=== PATIENT | female | born 1995 | race Caucasian/White ===

== ENCOUNTER 2016-07-05 06:57 | Day surgery (SDC) | payer OTHER ==
[2016-07-05] VITALS (7 sets, daily range): BP systolic 99–121; BP diastolic 46–63; PULSE 63–82; RESP 16–22; O2SAT 93–100
[~2016-07-05] VITALS: Ht 157.5 cm; Wt 62.5 kg
--- NOTE | 2016-07-05 06:49 | PCM.HPANE ---
Patient Data Surgeon Admitting Provider: Attending Provider:Nelda Giang MD Primary Care Physician:Ernesto Chong DO Other Provider:[facility] Reason for Visit Chronic Pelvic Pain Ht/WT & BMI Height (Feet): 5 Height (Inches): 2 Weight (Kilograms): 61.05 Body Mass Index 24.00 Allergies Coded Allergies: Penicillins (Verified Allergy, Intermediate, Hives, 05/30/16) as a child azithromycin (Verified Allergy, Intermediate, Hives, 05/30/16) Uncoded Allergies: TDAP (Allergy, Unknown, SEIZURE CHILD, 07/05/16) STATES WITH WHOOPING COUGH VACCINE. Past Anesthesia History Anesthesia History: Denies:: Abnormal Airway, Anesthesia Reactions, Difficult Intubation, Fam Anesthesia Reaction Diabetes History Hx Diabetes?: No MRSA MRSA: No Medications Hypertension Medication: No Home Meds Incl Beta May: No Reported Medications Magnesium 30 Mg TabletUnknown Dose PO DAILY 07/05/16 Melatonin 10 Mg Cawjch02 Mg PO HS PRN Insomnia 07/05/16 Trazodone 50 Mg Pgnhat09 Mg PO HS Ref 0 07/03/16 Sertraline HCl (Sertraline)20 Mg/1 Ml Oral.conc25 Mg PO DAILY #1 BOTTLE Ref 0 07/03/16 [mirena] 20mcg/24hr No Conflict Check20 Mcg INTRAUTERI DAILY 07/03/16 Hydrocodone-Acetaminophen 5-325 mg 1 Each Tablet1 Tablet PO Q6H PRN For Pain Ref 0 07/03/16 Discontinued Reported Medications Norgestimate-Ethinyl Estradiol (Sprintec)1 Each Tablet1 Each PO DAILY 07/03/16 Doxycycline Hyclate 100 Mg [id number] Mg PO BID #20 12/30/15 Sertraline HCl (Sertraline)25 Mg Tnejhd03 Mg PO DAILY #30 12/30/15 Trazodone 50 Mg Dvderg25 Mg PO HS #30 12/30/15 Discontinued Scripts Ondansetron (Zofran)4 Mg Tablet4 Mg PO Q4H PRN For Nausea #30 TABLET Prov:WHIT GARNER DO 05/30/16 Hydrocodone-Acetaminophen 5-325 mg 1 Each Tablet1 Tablet PO Q4H PRN For Pain # 14 TABLET Ref 0 Prov:WHIT GARNER DO 05/30/16 History History of ENT Problems?: No HEENT History: Denies:: Abnormal Airway Cataracts Difficult Intubation Dysphagia Glaucoma Hearing Problem Sinus Problem TMJ Hx of Heart Problems?: No Cardiovascular History: Denies:: AICD Abdominal Aortic Aneurism Atrial Fibrillation Congestive Heart Failure Coronary Artery Disease Edema Heart Murmur Hypertension Irregular Heartbeat Pacemaker Rheumatic Fever Hx of Respiratory Problem?: No Respiratory History: Denies:: Asthma COPD Emphysema Oxygen Administration Pneumonia (remote hx of- possibly) Tuberculosis Use of C-PAP Machine Use of Inhalers / NEBS Hx Neurologic Problems?: Yes Neurological History: Positive for:: Dizziness (hx of vasovagal fainting ) Denies:: CVA Headaches Multiple Sclerosis Parkinson's Disease Seizures Hx of GI Problems?: No Gastrointestinal History: Denies:: Cirrhosis Gall Bladder Disease Gastroesphageal Reflux Gastrointestinal Bleeding Heartburn Hepatitis Hiatal Hernia Liver Disease Hx of Problems?: Yes Genitourinary History: Positive for:: Urinary Tract Infection (frequent UTIs, not currently) Denies:: Kidney Stones Female Hx: Denies:: Currently (IUD) Problems with Breasts? Skin History: Denies:: History Skin Disorders? Pressure Ulcers Hx Musculoskeletal Problems?: No Musculoskeletal History: Positive for:: Back Injury (chiropractor regularly) Denies:: Degenerative Joint Fibromyalgia Joint Replacement Musculoskeletal Trauma Myasthenia Gravis Osteoarthritis Systemic Lupus Hx of Psycho/Social Problems?: Yes Psycho Social History: Positive for:: Anxiety (PTSD) Bipolar Disorder Hx Depression Hx Surgeries?: Yes (Hymenectomy) Hx Any Other Health Problems?: Yes Other History: Denies:: Cancer Thyroid Disease History Blood Transfusions: Positive for:: Accept Blood Products? Denies:: Blood Transfusions Hx Diabetes: No Hx Alcohol Use: YesAlcoholic Drinks Per Day: holidaysHx Substance Use: No Smoking Status: Never Smoker Stop/Bang S-Snoring: Do You Snore Loudly: Yes T-Tired: feel tired, fatigued: Yes O-Obsered: Observed not breath: No P-Blood Pressure: treated: No B- Body Mass Index > 35 kg/m2: No A- Age over 50: No N- Neck Large Circumference: No G- Gender Male: No IRENE Total Score: 2 Risk Assessment Category Category 1A: Patient has history of documented sleep apnea, and HAS NOT received any narcotic, sedative or anesthesia administration during this stay. Category 1B: Patient has history of documented sleep apnea, and HAS received any narcotic , sedative or anesthesia administration during this stay Category 2: Patient has SUSPECTED Obstructive Sleep Apnea, and HAS received any narcotic , sedative or anesthesia administration during this stay. Category 3: Patient has SUSPECTED Obstructive Sleep Apnea and HAS NOT received narcotic, sedative or anesthesia administration during this stay. Category 4: Outpatient in Procedural Areas with known sleep apnea or who screen positive for High Risk via the STOP/BANG questionnaire. Exam Exam General Appearance: Alert, Oriented X3, Cooperative HEENT/AIRWAY: MP 2, Neck Movement (wnl), Mouth Opening (wnL, prominent, anterior front upper teeth) Lungs: Clear to Auscultation Heart: Exam Unremarkable Plan Impression Patient chart reviewed, patient interviewed and anesthestic plan with risks, benefits, and alternatives discussed, and informed consent obtained. ASA Physical Status: ASA2 Mod Systemic Disease Anesthetic Plan: GA Bene/Risks/Altern/Consents: Yes HP Complete Prior to Induction: Yes Nomi Rivera MD Jul 05, 2016 06:49
[~2016-07-05 06:57] MED LIST: HYDR-4003 PO; Lactated Ringer's 1,000 ML IV SCH; NORG1TAB14 PO; SERT20OR6 PO; TRAZ-115 PO; mirena INTRAUTERI
[2016-07-05] MEDS ORDERED: fentaNYL-PF 50 mCg/mL 2 mL Inj ONE (06:58)
[2016-07-05] MEDS ORDERED: MELA10TA2 PO (07:15)
[2016-07-05] MEDS ORDERED: MAGN30TA3 PO (07:15)
[2016-07-05] MEDS ORDERED: Lactated Ringer's 1,000 ML IV ONE (08:13)
[2016-07-05 08:14] LABS: BASOPHILS % (AUTO) 0.2 % (0-3); EOSINOPHILS % (AUTO) 1.1 % (0-5); MONOCYTES % (AUTO) 5.9 % (4-12); Mean Corpuscular Hemoglobin 30.6 pg (27.0-35.0); NEUTROPHILS % (AUTO) 60.7 % (40-74); Platelet Count 186 bil/L (150-400)
[2016-07-05] MEDS ORDERED: LORazepam 1 mg Tablet PO PRN (08:25)
[2016-07-05] MEDS ORDERED: Acetaminophen IV 1,000 MG in IV Premix 1 EACH IV ONE (08:25)
[2016-07-05] MEDS ORDERED: Lactated Ringer's 500 ML IV PRN (11:10)
[2016-07-05] MEDS ORDERED: Phenylephrine 10,000 mCg/mL Inj IVPUSH PRN (11:10)
[2016-07-05] MEDS ORDERED: fentaNYL-PF 50 mCg/mL 2 mL Inj IVPUSH PRN (11:10)
[2016-07-05] MEDS ORDERED: Labetalol 5 mg/mL 4 mL Inj IV PRN (11:10)
[2016-07-05] MEDS ORDERED: EPHEDrine Sulfate 50 mg/mL Inj IM PRN (11:10)
[2016-07-05] MEDS ORDERED: Dexamethasone 4 mg/mL Inj IVPUSH PRN (11:10)
[2016-07-05] MEDS ORDERED: EPHEDrine Sulfate 50 mg/mL Inj IVPUSH PRN (11:10)
[2016-07-05] MEDS ORDERED: Atropine 0.4 mg/mL Inj IVPUSH PRN (11:10)
[2016-07-05] MEDS ORDERED: HYDROmorphone 1 mg/mL Inj IVPUSH PRN (11:10)
[2016-07-05] MEDS ORDERED: hydrALAZINE 20 mg/mL Inj IVPUSH PRN (11:10)
[2016-07-05] MEDS ORDERED: Lactated Ringer's 1,000 ML IV SCH (11:10)
[2016-07-05] MEDS ORDERED: Ondansetron 2 mg/mL 2 mL Inj IVPUSH PRN ×2 (11:10→12:45)
[2016-07-05] MEDS ORDERED: Bupivacaine 0.5%/EPI 50 mL Inj INFILTRATE ONE (11:22)
[2016-07-05] MEDS ORDERED: oxyCODONE-Acetamin 5-325 mg Tablet PO PRN (12:45)
[2016-07-05] MEDS ORDERED: MetoCLOpramide 5 mg/mL 2 mL Inj IVPUSH PRN (12:45)
--- NOTE | 2016-07-05 12:48 | PCM.DIMED ---
Discharge Instructions Date of Service Jul 05, 2016 Dates of Hospitalization Discharge Diagnosis Discharge Diagnosis chronic pelvic pain Diet No restrictions Call your provider Fever or Chills, Shortness of breath, Bleeding Patient Instructions Please call office or go to ER if heavy vaginal bleeding, severe abdominal pain , foul smelling discharge, fever more than 100.4 Follow-up plan follow up with Dr Giang 2 weeks after procedure Follow-up Provider: Nelda Giang MD, Ying MD Jul 05, 2016 12:48
--- NOTE | 2016-07-05 13:23 | PCM.ANEP1 ---
Post Anesthesia Phase 1 PACU Phase 1 Assessment Vital Signs Vital Signs Date Time Temp Pulse Resp B/P Pulse Ox O2 Delivery O2 Flow Rate FiO2 07/05/16 13:10 63 17 99/63 100 Room Air 07/05/16 13:00 68 18 101/50 97 Room Air 07/05/16 12:53 74 19 108/57 98 Nasal Cannula 2 07/05/16 12:45 68 20 102/48 98 Nasal Cannula 2 07/05/16 12:40 36.3 81 22 104/46 93 Room Air 07/05/16 07:42 36.4 79 16 121/53 100 Room Air Anesthetic Administered: GA Level of Alertness: Awake, talking ROSS's with Equal Strength: Yes Pain: No Nausea or Vomiting: No Oxygen Delivery: Room Air Lungs: Normal Air Movement Nomi Rivera MD Jul 05, 2016 13:23
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
--- NOTE | 2016-07-05 13:33 | DIS ---
[address] [address] DISCHARGE SUMMARY PATIENT: LUIS A CLAYTON : 1995 MR#: [id number] ADMIT: 07/05/2016 JOB ID: [id number] DIS: HOSPITAL COURSE: This is a 20-year-old female, never been . Coming in today for a diagnostic laparoscopy for chronic pelvic pain. The procedure was not complicated. The patient tolerated well. Plan to discharge her home when her pain is well controlled and she can void and ambulate. The patient is instructed that she will come back to see me in two weeks in the office. She needs to call the office or go to the ED for evaluation if there is heavy vaginal bleeding, severe abdominal pain, fever 104, or shortness of breath.
--- NOTE | 2016-07-06 11:44 | PCM.ANEP2 ---
Post Anesthesia Evaluation ASA/CMS Post Anesthesia VS in Patient's Normal Range?: Yes Resp Stable; Airway Patent?: Yes CV Function & Hydration Stable: Yes Mental Status Recovered?: Yes Pain control Satisfactory?: Yes N/V Control Satisfactory?: Yes Nomi Rivera MD Jul 06, 2016 11:44
--- NOTE | 2016-07-09 11:37 | PATH ---
SURGICAL PATHOLOGY Attending Physician:Nelda Giang MD CASE STATUS: Signed Out PATIENT NAME: LUIS A CLAYTON PID: [id number] : 1995 DATE COLLECTED:07/05/2016 00:00 SPECIMEN: Perineum, biopsy CLINICAL HISTORY: CHRONIC PELVIC PAIN 1). PERITONEAL BIOPSY FINAL DIAGNOSIS: 1.PERITONEAL BIOPSY: FOCAL ENDOMETRIOSIS. NEGATIVE FOR MALIGNANCY AND SIGNIFICANT ATYPIA. ICD10 CODE N80.9 GROSS DESCRIPTION: The specimen is received in one formalin filled container labeled with the patient's name, sublabeled "peritoneal" and consists of a 0.4 x 0.3 x 0.3 CM portion of tissue. The specimen is entirely submitted in one cassette. 07/06/2016 DAC MICRO DESCRIPTION: See diagnosis. ICD-9 CODES: CPT CODES: 1: 30686 Electronically Signed Out Forrest Darling MD [facility] [address], [place] [address] Technical component performed at [facility], [facility] [address], [place], [address]
== END 2016-07-05 23:59 | disposition home or self-care (01) ==
LOC: SAS 06:57
PROVIDERS: ATTEND Obstetrics & Gynecology
DX: N80.9 Endometriosis, unspecified (principal); R10.2 Pelvic and perineal pain; F43.10 Post-traumatic stress disorder, unspecified; F31.9 Bipolar disorder, unspecified; F41.9 Anxiety disorder, unspecified; Z62.810 Personal history of physical and sexual abuse in childhood; Z87.440 Personal history of urinary (tract) infections; Z30.432 Encounter for removal of intrauterine contraceptive device
CPT/HCPCS: 36415; 49321; 58301; 85025; J0131; J2250; J2405; J2765; J3010; J7120

== ENCOUNTER 2016-08-05 17:03 | Emergency (ER) | payer OTHER ==
[~2016-08-05] VITALS: Ht 157.5 cm; Wt 59.1 kg
[~2016-08-05 17:03] MED LIST changes: -Lactated Ringer's 1,000 ML IV SCH; +MAGN30TA3 PO; +MELA10TA2 PO; -NORG1TAB14 PO
[2016-08-05 17:08] VITALS: BP 145/98; PULSE 96; RESP 16; O2SAT 100
[2016-08-05 18:03] LABS: BASOPHILS % (AUTO) 0.1 % (0-3); EOSINOPHILS % (AUTO) 0.4 % (0-5); Mean Corpuscular Hemoglobin 29.8 pg (27.0-35.0); Mean Corpuscular Volume 86.5 fL (81-100); NEUTROPHILS % (AUTO) 66.4 % (40-74); Platelet Count 233 bil/L (150-400)
[2016-08-05 18:27] LABS: Magnesium 2.1 mg/dL (1.6-2.6)
[2016-08-05 19:26] LABS: APPEARANCE,URINE CLEAR (CLEAR,HAZY); COLOR,URINE YELLOW (YELLOW); OCCULT BLOOD,URINE LARGE (NEGATIVE); UROBILINOGEN,URINE NORMAL (NORMAL)
--- NOTE | 2016-08-05 19:27 | ED.REPORT ---
HPI-Abd Pain F Under 40 Date of Service Aug 05, 2016 ED Provider: Dr. 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 She also had 1 episode of black stool 6 hrs [employer]. She reports constant, severe abdominal and bladder pain. Pt denies dysuria and hematuria but has to urinate over 30-40 times a day. She has an appointment on Friday to check for an ulcer. She was last seen at the ED 05/30/16 for abdominal pain. She has had multiple recent urine cultures done by her PCP and has tested negative for any STDs, bacteria, and . Dr. Keys is her urologist. She is currently taking Oxybutynin, Trazodone, Ibuprofen,and Naproxen. Nursing Notes Stated Complaint: NAUSEA/VOMITING, SENT BY MD Chief Complaint: Female Abdominal Pain Nursing Notes Reviewed: Yes Allergies: Coded Allergies: Penicillins (Verified Allergy, Intermediate, Hives, 08/05/16) as a child azithromycin (Verified Allergy, Intermediate, Hives, 08/05/16) Uncoded Allergies: TDAP (Allergy, Unknown, SEIZURE CHILD, 07/05/16) STATES WITH WHOOPING COUGH VACCINE. Scheduled ([mirena]) 20mcg/24hr 20 MCG INTRAUTERI DAILY Magnesium (Magnesium) 30 Mg Tablet Unknown Dose PO DAILY Sertraline HCl (Sertraline) 20 Mg/1 Ml Oral.conc 25 MG PO DAILY Trazodone (Trazodone) 50 Mg Tablet 50 MG PO HS Scheduled PRN Hydrocodone-Acetaminophen 5-325 mg (Hydrocodone-Acetaminophen 5-325 mg) 1 Each Tablet 1 TABLET PO Q6H PRN PRN For Pain Melatonin (Melatonin) 10 Mg Tablet 10 MG PO HS PRN PRN Insomnia General Time Seen by MD: 19:24 Chief Complaint Abdominal pain Hx Obtained From: Patient Arrived By: Walk-in Sudden in Onset?: Yes Symptom Duration: Since onset Location: : Abdomen lower: Abdomen upper: Diffuse: Suprapubic Quality: Painful Severity: Current: Moderate Recent Healthcare: Recent doctor visit Similar Sx Previous: Yes Past Medical History Past Medical History ovarian cysts chronic pelvic pain with no response to antibiotics frequent UTIs PTSD Past Surgical History 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 Physical Exam Initial Vital Signs Vital Signs (First) Date Time Temp Pulse Resp B/P Pulse Ox O2 Delivery O2 Flow Rate FiO2 08/05/16 17:08 36.6 96 16 145/98 100 Room Air Initial VS: Reviewed Head / Eyes: Atraumatic, Normocephalic, PERRL ENT: Mucous membranes moist, Conjunctiva normal, No scleral icterus Neck: Supple, Non-tender, Full range of motion Extremities: Vascular intact, Neuro intact, No swelling, No tenderness Skin: Warm, Dry, No cyanosis Neurologic: Alert, Oriented, Nonfocal Psychiatric: Mood/affect normal, Behavior normal, Normal thought content General/Constitutional: Awake, Alert, Cooperative, Not toxic appearing Respiratory / Chest: Atraumatic, Breath sounds NL, Breath sounds = bilat, No respiratory distress, No rales, No rhonchi, No wheezing, No retractions, No stridor, No chest tenderness Cardiovascular: Heart rate NL, Regular rhythm, No gallop, No murmurs, No rubs, Peripheral circulation NL, Pulses = bilaterally faint systolic ejection murmur Abdomen: Soft, No guarding, No rebound, BS normoactive, No distention Tenderness/Guarding/Rebound: Positive: Tender suprapubic Back: Atraumatic, Inspection NL, Full range of motion, Painless range of motion , Non-tender, No midline vertebral tend, No CVA tenderness Interpretation & Diagnostics Lab Results Interpretation Result Diagram: 08/05/16212408/05/16 175 Test 08/05/16 17:51 08/05/16 18:57 08/05/16 21:25 White Blood Count 6.7th/mm3 (3.8-10.1) Red Blood Count 4.43mil/mm3 (3.90-5.20) Mean Corpuscular Volume 86.5fL (81-100) Mean Corpuscular Hemoglobin 29.8pg (27.0-35.0) Mean Corpuscular Hemoglobin Concent 34.5% (32.0-37.0) Red Cell Distribution Width 12.1% (12.3-15.4) Platelet Count 233bil/L (150-400) Neutrophils (%) (Auto) 66.4% (40-74) Lymphocytes (%) (Auto) 29.0% (14-46) Monocytes (%) (Auto) 4.0% (4-12) Eosinophils (%) (Auto) 0.4% (0-5) Basophils (%) (Auto) 0.1% (0-3) Sodium Level 134mEq/L (134-144) Potassium Level 3.9mEq/L (3.5-5.2) Chloride Level 97mEq/L (97-108) Carbon Dioxide Level 22mmol/L (18-29) Blood Urea Nitrogen 16mg/dL (6-20) Creatinine 0.72mg/dL (0.57-1.00) Estimat Glomerular Filtration Rate 148mL/min (>59) Glucose Level 92mg/dL (60-99) Calcium Level 9.4mg/dL (8.5-10.1) Magnesium Level 2.1mg/dL (1.6-2.6) Total Bilirubin 0.2mg/dL (0.0-1.2) Aspartate Amino Transf (AST/SGOT) 19U/L (0-50) Alanine Aminotransferase (ALT/SGPT) 14U/L (0-32) Alkaline Phosphatase 41U/L (25-150) Total Protein 7.2g/dL (6.4-8.4) Albumin 5.0g/dL (3.4-5.0) Lipase 18U/L (13-60) Hold Arriaza Top Tube Received (Received) Urine Color Yellow (YELLOW) Urine Appearance Clear (CLEAR,HAZY) Urine pH 6.0 (5.0-8.0) Urine Specific [place] 1.010 (1.003-1.035) Urine Protein Negativemg/dL (NEG,TRACE) Urine Glucose (UA) Negativemg/dL (NEGATIVE) Urine Ketones 15mg/dL (NEGATIVE) Urine Occult Blood Large (NEGATIVE) Urine Nitrite Negative (NEGATIVE) Urine Bilirubin Negative (NEGATIVE) Urine Urobilinogen Normalmg/dL (NORMAL) Urine Leukocyte Esterase Negative (NEGATIVE) Urine RBC 11-50/hpf (0-2) Urine WBC 0-5/hpf (0-5) Urine Epithelial Cells Few/hpf (NONE-MOD) Urine Crystals None seen (NONE SEEN) Urine Bacteria Few/hpf (NONE-FEW) Urine Hyaline Casts None/lpf (NONE) Urine Granular Casts None seen (NONE SEEN) Urine Waxy Casts None seen (NONE SEEN) Urine Red Blood Cell Casts None seen (NONE SEEN) Urine White Blood Cell Casts None seen (NONE SEEN) Urine Mucus None seen (None Seen) Urine Trichomonas None seen (NONE SEEN) Urine Yeast None (NONE SEEN) Urinalysis Comment None Urine Culture Reflexed Not indicated Hemoglobin 12.8g/dL (12.0-15.6) Hematocrit 36.6% (35.0-46.0) Re-Eval/Medical Decision Med Decision/Clinical Course Healthy 20-year-old female is referred in for evaluation of black vomitus and black stools. Evidently she suffers from chronic interstitial cystitis. She takes a large number of anti-inflammatories for the pain. She is scheduled to have cystoscopy this week. Today she threw up she said it looked like it had some black fluid. There is no coffee-ground emesis or blood. She also had a bowel movement very dark. She does not know she passed any blood. Either way she called her doctor referred her in. On examination she had a soft nontender abdomen and she looked great. She declined rectal examination. Serial H&H's were very reassuring. Her BUN/creatinine were normal. She looks great. I observed her for many hours. After 5 hours of observation she had no bloody stools and she had no bloody emesis and she is ready to go home. She did receive Carafate and Protonix. I will put her on Protonix once daily. I am taken her off the Naprosyn. She is provided a short course of [place] for pain. She is to keep her follow-up for cystoscopy this week. She is return if she has any problems or worsening symptoms. Counseled Regarding: Diagnosis, Lab results, Need for follow-up, When/why to return to ED Discharge & Departure Primary Impression: Abdominal pain in female Disposition: Home Discharge Condition All VS Reviewed: Yes Condition: Stable Patient Instructions: Acute Abdominal Pain (ED), Gastritis (ED) Additional Instructions: The laboratory work is reassuring. No signs of active hemorrhage. If you pass any bloody or black stools then I would like you to be tested again for bleeding. Stop taking the Naprosyn. Take Protonix daily for 2 weeks. Take 1- 2 [place] every 6 hours as needed for severe pain. Do not drive or drink alcohol or consume acetaminophen while taking the [place]. Keep your follow-up cystoscopy appointment. Set up a follow-up with her primary care physician as well. You may need endoscopy if the symptoms persist. Referrals: Annabella Escobar (PCP) Breanaibe Attestation Portion of this note were transcribed by Ayla Chapman. I, Dr. Marin, personally performed the history, physical exam, and medical decision-making: I reviewed and confirmed the accuracy for the information in the transcribed note. Signed by: heather Chirinos, 08/05/16 2200 copies to: Annabella Escobar Todd P DO Aug 05, 2016 19:27 Ayla Chapman Aug 05, 2016 20:01
[2016-08-05] MEDS ORDERED: HYDROcodone-APAP 5-325 mg Tablet PO ONE (20:05)
[2016-08-05] MEDS ORDERED: Pantoprazole 4 mg/mL 10 mL Inj IVPUSH ONE (20:05)
[2016-08-05] MEDS ORDERED: Pantoprazole 40 mg ER24 Tablet PO ONE (20:50)
[2016-08-05] MEDS: Sucralfate 100 mg/mL 10 mL Suspension PO ONE ×2 (20:51→21:09)
[2016-08-05 21:00] VITALS: BP 132/89; PULSE 88; RESP 16; O2SAT 100
[2016-08-05 23:38] VITALS: BP 132/87; PULSE 88; RESP 20; O2SAT 97
== END 2016-08-05 23:40 | disposition home or self-care (01) ==
LOC: SED 17:03
DX: R10.30 Lower abdominal pain, unspecified (principal); Z87.440 Personal history of urinary (tract) infections; Z88.0 Allergy status to penicillin; Z88.1 Allergy status to other antibiotic agents; Z88.7 Allergy status to serum and vaccine

== ENCOUNTER → 2017-02-21 | Day surgery (SDC) | payer OTHER ==
[~2017-02-21] VITALS: Ht 157.5 cm; Wt 64.3 kg
[2017-02-21] VITALS (10 sets, daily range): BP systolic 93–133; BP diastolic 44–82; PULSE 14–94; RESP 13–24; O2SAT 97–100
[~2017-02-21] MED LIST changes: +BCP PO; +CeFAZolin 2 Gm/50 mL D5W Duplex Bag IV ONE; +CeFAZolin Inj 2 GM in IV Premix 1 EACH IV ONE; +Dexamethasone 4 mg/mL Inj IVPUSH PRN; +EPHEDrine Sulfate 50 mg/mL Inj IVPUSH PRN; +GABA600T2 PO; +HYDROmorphone 1 mg/mL Inj IVPUSH PRN; +Lactated Ringer's 1,000 ML IV ONE; +Lactated Ringer's 1,000 ML IV SCH; +Lactated Ringer's 500 ML IV PRN; -MAGN30TA3 PO; -MELA10TA2 PO; +MetoCLOpramide 5 mg/mL 2 mL Inj IVPUSH PRN; +NORT25CA PO; +Ondansetron 2 mg/mL 2 mL Inj IVPUSH PRN; +Ondansetron 8 mg ODT Tablet PO PRN; +PENT100C9 PO; +PROP20TA5 PO; +Phenylephrine 10,000 mCg/mL Inj IVPUSH PRN; +Propofol 10,000 mCg/mL 20 mL Inj ONE; +QUET100T PO; +QUET25TA PO; +SERT100T9 PO; -SERT20OR6 PO; -TRAZ-115 PO; +fentaNYL-PF 50 mCg/mL 2 mL Inj IVPUSH PRN; +fentaNYL-PF 50 mCg/mL 2 mL Inj ONE
--- NOTE | 2017-02-21 11:17 | PCM.HPANE ---
Patient Data Surgeon Admitting Provider: Attending Provider:Hope Moser MD Primary Care Physician:Annabella Escobar Other Provider:Clyde Yan Anesthesia Reason for Visit Interstitial Cystitis Ht/WT & BMI Height (Feet): 5 Height (Inches): 2 Weight (Kilograms): 64.3 Body Mass Index 26.00 Allergies Coded Allergies: Penicillins (Verified Allergy, Severe, Hives, 02/19/17) as a child azithromycin (Verified Allergy, Severe, Hives, 02/19/17) Uncoded Allergies: TDAP (Allergy, Severe, SEIZURE CHILD, 02/19/17) STATES WITH WHOOPING COUGH VACCINE. Past Anesthesia History Anesthesia History: Denies:: Abnormal Airway, Anesthesia Reactions, Difficult Intubation, Fam Anesthesia Reaction, Malignant Hyperthermia Diabetes History Hx Diabetes?: No MRSA MRSA: No Medications Hypertension Medication: No Home Meds Incl Beta May: Yes (PROPRANOLOL) Reported Medications Quetiapine Fumarate (Seroquel)25 Mg Hwxvdm30 Mg PO BID Ref 0 02/19/17 Quetiapine Fumarate (Seroquel)100 Mg Xnnaub071 Mg PO HS Ref 0 02/19/17 Propranolol HCl 20 Mg Rscoyr05 Mg PO BID 90 Days Ref 0 02/19/17 Nortriptyline 25 Mg Uowywxb92-90 Mg PO HS 02/19/17 [Bcp] No Conflict Check1 Dose PO DAILY 02/19/17 Gabapentin 600 Mg Vabrvx721 Mg PO BID Ref 0 02/19/17 Pentosan Polysulfate Sodium (Elmiron)100 Mg Yuloeuo292 Mg PO TID 02/19/17 Sertraline HCl (Sertraline)100 Mg Ontbxx575 Mg PO HS 30 Days Ref 0 02/19/17 [mirena] 20mcg/24hr No Conflict Check20 Mcg INTRAUTERI DAILY 07/03/16 Hydrocodone-Acetaminophen 5-325 mg 1 Each Tablet1 Tablet PO Q6H PRN For Pain Ref 0 07/03/16 Discontinued Reported Medications Magnesium 30 Mg TabletUnknown Dose PO DAILY 07/05/16 Melatonin 10 Mg Xwxyfd29 Mg PO HS PRN Insomnia 07/05/16 Trazodone 50 Mg Mwlupu60 Mg PO HS Ref 0 07/03/16 Sertraline HCl (Sertraline)20 Mg/1 Ml Oral.conc25 Mg PO DAILY #1 BOTTLE Ref 0 07/03/16 History History of ENT Problems?: Yes HEENT History: Positive for:: Sinus Problem (ALLERGIC RHINITIS) Denies:: Abnormal Airway Cataracts Difficult Intubation Dysphagia Hearing Problem TMJ Denture Type: None Teeth Condition: Within Normal Limits Hx of Heart Problems?: Yes Cardiovascular History: Denies:: AICD Abdominal Aortic Aneurism Atrial Fibrillation Congestive Heart Failure Edema Heart Murmur Hypertension Irregular Heartbeat Pacemaker Rheumatic Fever Other Cardiac History: HX OF FAINTING R/T VASO-VAGAL RESPONSE Hx of Respiratory Problem?: Yes Respiratory History: Denies:: Asthma COPD Emphysema Oxygen Administration Pneumonia (remote hx of- possibly) Tuberculosis Use of C-PAP Machine (SNORES) Hx Neurologic Problems?: Yes Neurological History: Positive for:: Dizziness (hx of vasovagal fainting ) Denies:: CVA Headaches Multiple Sclerosis Parkinson's Disease Seizures Other History/Comments PTSD/Chr pelvic pain Hx of GI Problems?: No Hx of Problems?: Yes Genitourinary History: Positive for:: Urinary Tract Infection (frequent UTIs INTERSTITIAL CYSTITIS=CURRENT PROBLEM) Denies:: Kidney Stones Female Hx: Denies:: Currently Problems with Breasts? Skin History: Denies:: History Skin Disorders? Pressure Ulcers Hx Musculoskeletal Problems?: Yes Musculoskeletal History: Positive for:: Back Injury (chiropractor regularly) Denies:: Degenerative Joint Joint Replacement Musculoskeletal Trauma Systemic Lupus Hx of Psycho/Social Problems?: Yes Psycho Social History: Positive for:: Anxiety (PTSD) Bipolar Disorder Hx Depression Hx Surgeries?: Yes (Hymenectomy,DX LAP) Hx Any Other Health Problems?: Yes Other History: Denies:: Cancer Endocrine Disease Hospitalization Thyroid Disease History Blood Transfusions: Denies:: Blood Transfusions Hx Diabetes: No Hx Alcohol Use: Yes (HOLIDAYS)Hx Substance Use: Yes (HX OF ETOH/OPIOID ABUSE NONE CURRENTLY) Smoking Status: Never Smoker Stop/Bang S-Snoring: Do You Snore Loudly: Yes T-Tired: feel tired, fatigued: Yes O-Obsered: Observed not breath: No P-Blood Pressure: treated: Yes B- Body Mass Index > 35 kg/m2: No A- Age over 50: No N- Neck Large Circumference: No G- Gender Male: No IRENE Total Score: 3 IRENE Risk Assessment: Low Risk, <3 Yes Risk Assessment Category Category 1A: Patient has history of documented sleep apnea, and HAS NOT received any narcotic, sedative or anesthesia administration during this stay. Category 1B: Patient has history of documented sleep apnea, and HAS received any narcotic , sedative or anesthesia administration during this stay Category 2: Patient has SUSPECTED Obstructive Sleep Apnea, and HAS received any narcotic , sedative or anesthesia administration during this stay. Category 3: Patient has SUSPECTED Obstructive Sleep Apnea and HAS NOT received narcotic, sedative or anesthesia administration during this stay. Category 4: Outpatient in Procedural Areas with known sleep apnea or who screen positive for High Risk via the STOP/BANG questionnaire. Exam Exam Vital Signs Vital Signs Date Time Temp Pulse Resp B/P Pulse Ox O2 Delivery O2 Flow Rate FiO2 02/21/17 10:53 36.3 94 16 133/82 100 Room Air General Appearance: Alert, Oriented X3 HEENT/AIRWAY: MP 1 Lungs: Clear to Auscultation Heart: Exam Unremarkable Meds/Labs/Diagnostics Admission Meds Current Medications Lactated Ringer's (Lr) 1,000 ml @ ud STK-MED ONCE IV Last administered on 02/21t 11:01; Start 02/21/17 at 11:01; Stop 02/21/17 at 11:02; Status DC Plan Impression Patient chart reviewed, patient interviewed and anesthestic plan with risks, benefits, and alternatives discussed, and informed consent obtained. ASA Physical Status: ASA2 Mod Systemic Disease Anesthetic Plan: GA Bene/Risks/Altern/Consents: Yes HP Complete Prior to Induction: Yes Romana Bonilla MD Feb 21, 2017 11:17
[2017-02-21] MEDS: HYDROcodone-APAP 5-325 mg Tablet PO PRN ×2 (14:05→14:25)
--- NOTE | 2017-02-21 14:29 | PCM.ANEP1 ---
Post Anesthesia PACU Phase 1 Assessment Vital Signs Vital Signs Date Time Temp Pulse Resp B/P Pulse Ox O2 Delivery O2 Flow Rate FiO2 02/21/17 13:43 14 16 111/66 100 Room Air 02/21/17 13:40 23 15 111/56 97 Room Air 02/21/17 13:35 81 16 103/62 99 Room Air 02/21/17 13:30 36.6 66 24 95/44 100 Simple Mask 8 02/21/17 13:25 63 20 93/47 100 Simple Mask 8 02/21/17 13:20 62 20 95/46 100 Simple Mask 8 02/21/17 13:15 36.3 61 13 103/60 99 Simple Mask 8 02/21/17 10:53 36.3 94 16 133/82 100 Room Air Anesthetic Administered: GA Level of Alertness: Awake, talking ROSS's with Equal Strength: Yes Pain: No Nausea or Vomiting: No CV Function & Hydration Stable: Yes Airway Device: Oxygen Delivery: Room Air Lungs: Clear to Auscultation PACU Phase 2 Assessment Complications: No Follow up Care: No Patient Instructions Provided: Yes Romana Bonilla MD Feb 21, 2017 14:29
--- NOTE | 2017-02-22 21:16 | OP ---
[address] [address] OPERATIVE REPORT PATIENT: LUIS A CLAYTON : 1995 MR#: [id number] ADMIT: 02/21/2017 JOB ID: [id number] DATE OF SURGERY: 02/21/2017 SURGEON: Hope Moser MD. PREOPERATIVE DIAGNOSIS(ES): Chronic interstitial cystitis, chronic pelvic pain, chronic urinary pain refractory to multiple treatment options. Counseled in clinic about risks/benefits of treatment options including hydrodistention. She wished to proceed with this. POSTOPERATIVE DIAGNOSIS(ES): PROCEDURE: Cystoscopy with hydrodistention. ANESTHESIA: General. PROCEDURE IN DETAIL: After appropriate informed consent was obtained, the patient was brought to the operating room. She received IV antibiotics prior to onset of procedure. SCDs were placed. Adequate general anesthesia was induced. She was carefully placed in dorsal lithotomy position. All pressure points pressure were carefully padded. Cleaned, prepped, and draped in the usual sterile fashion. Rigid scope was introduced into bladder which was surveyed systematically with the 30- and 70-degree lenses and found to be completely normal in appearance. She was hydrodistended to 50-60 cm of water for 3 minutes. The bladder was drained. Bladder capacity was 750. Scope was replaced. There were minimal petechiae. Bladder was hydrodistended once again, also to 50-60 cm of water, held for 3 minutes. Drained once again. Capacity this time was approximately 800 cc. Again, minimal petechiae. Bladder was drained. We instilled 30 cc of lidocaine with epinephrine comfortably into the bladder. Withdrew the scope. Also a lido jet was used for the urethra. She tolerated the procedure well. Was awakened, taken in stable condition to the postanesthesia care unit.
== END | disposition home or self-care (01) ==
LOC: SAS 10:28
PROVIDERS: ATTEND Urology
DX: N30.10 Interstitial cystitis (chronic) without hematuria (principal); R10.2 Pelvic and perineal pain; R35.0 Frequency of micturition; N94.10 Unspecified dyspareunia; R35.1 Nocturia; N39.41 Urge incontinence; F43.10 Post-traumatic stress disorder, unspecified; F32.9 Major depressive disorder, single episode, unspecified; Z62.810 Personal history of physical and sexual abuse in childhood; Z87.440 Personal history of urinary (tract) infections
CPT/HCPCS: 52260; J0690; J2250; J2704; J3010; J7120

== ENCOUNTER 2017-02-24 14:39 | Emergency (ER) | payer OTHER ==
[~2017-02-24] VITALS: Ht 157.5 cm; Wt 63.6 kg
[~2017-02-24 14:39] MED LIST changes: -CeFAZolin 2 Gm/50 mL D5W Duplex Bag IV ONE; -CeFAZolin Inj 2 GM in IV Premix 1 EACH IV ONE; -Dexamethasone 4 mg/mL Inj IVPUSH PRN; -EPHEDrine Sulfate 50 mg/mL Inj IVPUSH PRN; -HYDROmorphone 1 mg/mL Inj IVPUSH PRN; -Lactated Ringer's 1,000 ML IV ONE; -Lactated Ringer's 1,000 ML IV SCH; -Lactated Ringer's 500 ML IV PRN; -MetoCLOpramide 5 mg/mL 2 mL Inj IVPUSH PRN; -Ondansetron 2 mg/mL 2 mL Inj IVPUSH PRN; -Ondansetron 8 mg ODT Tablet PO PRN; -Phenylephrine 10,000 mCg/mL Inj IVPUSH PRN; -Propofol 10,000 mCg/mL 20 mL Inj ONE; -fentaNYL-PF 50 mCg/mL 2 mL Inj IVPUSH PRN; -fentaNYL-PF 50 mCg/mL 2 mL Inj ONE
[2017-02-24 14:44] VITALS: BP 130/85; PULSE 94; RESP 16; O2SAT 100
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
[2017-02-24 15:28] LABS: BASOPHILS % (AUTO) 0.2 % (0-3); EOSINOPHILS % (AUTO) 0.9 % (0-5); MONOCYTES % (AUTO) 5.8 % (4-12); Mean Corpuscular Hemoglobin 30.3 pg (27.0-35.0); Mean Corpuscular Volume 88.3 fL (81-100); NEUTROPHILS % (AUTO) 67.2 % (40-74); Platelet Count 280 bil/L (150-400)
[2017-02-24 15:46] VITALS: BP 130/79; PULSE 80; RESP 16
[2017-02-24 16:01] LABS: TROPONIN T < 0.010 ug/L (0.0-0.011)
--- NOTE | 2017-02-24 16:25 | DRSVH ---
PROCEDURE: X-RAY CHEST ONE VIEW, PORTABLE ([id number]) INDICATIONS: CHEST PAIN TECHNIQUE: One view of the chest was acquired. COMPARISON: [facility], CR, CHEST 2VW, 05/13/2007, 11:50. FINDINGS: Surgical changes and devices: None. Lungs and pleura: No pleural effusions or pneumothorax. Lungs are clear. Mediastinum: Mediastinal contours appear normal. Heart size is normal. Bones and chest wall: No suspicious bony lesions. Overlying soft tissues appear unremarkable. IMPRESSION: No acute cardiopulmonary findings. Dictated by: Kat Noel M.D. on 02/24/2017 at 16:23 Approved by: Kat Noel M.D. on 02/24/2017 at 16:23
[2017-02-24 17:06] VITALS: BP 115/60; PULSE 76; RESP 16; O2SAT 97
[2017-02-24 17:09] VITALS: BP 115/60; PULSE 76; RESP 16; O2SAT 97
== END 2017-02-24 17:10 | disposition home or self-care (01) ==
LOC: SED 14:39
DX: R06.02 Shortness of breath (principal); R07.89 Other chest pain; Z87.442 Personal history of urinary calculi; Z88.0 Allergy status to penicillin; Z88.1 Allergy status to other antibiotic agents